=== PATIENT | male | born 1990 | race African-American/Black ===

== ENCOUNTER 2016-12-17 00:57 | Emergency (ER) | payer SELFPAY ==
[2016-12-17 02:45] LABS: BASOPHIL 0.6 % (0-2); EOSINOPHIL 0.5 % (0-5); HGB 15.7 g/dl (13.2-18.0); LYMPHOCYTE 17.5 % (15-48); MCH 30.1 pg (25.0-31.0); MCHC 34.9 g/dL (32.0-36.0); MCV 86.2 fL (78.0-100.0); MONOCYTE 4.4 % (0-12); MPV 10.6 fL (6.0-9.5); PLT 192 K/uL (150-400); RBC 5.22 M/uL (4.70-6.00); RDW 13.1 % (11.5-14.0); WBC 8.1 K/uL (4.0-10.5)
[2016-12-17 03:03] LABS: ALBUMIN 4.8 g/dL (3.5-5.0); BILIRUBIN - TOTAL 0.4 mg/dL (0.1-1.0); GLOBULIN (CALCULATION) 2.5 g/dL (2.2-4.2); POTASSIUM 4.2 mmol/L (3.5-5.1); TOTAL PROTEIN 7.3 g/dL (6.4-8.3)
== END 2016-12-17 04:15 | disposition home or self-care (01) ==
LOC: FER 00:57
PROVIDERS: Emergency Medicine Emergency Medical Services
DX: K29.20 Alcoholic gastritis without bleeding (principal); E86.9 Volume depletion, unspecified; F17.200 Nicotine dependence, unspecified, uncomplicated
CPT/HCPCS: 36415; 80053; 83690; 85025; C9113; J2405

== ENCOUNTER 2020-12-17 08:32 | Day surgery (SDCO) | payer OTHER ==
[~2020-12-17 08:32] MED LIST: BACLOFEN 10MG T10 MG PO; LEVAQUIN500 MG PO; METRONIDAZOLE500 MG PO; NAPROXEN500 MG PO; ONDANSETRON ODT4 MG PO/SL; PROMETHEGA12.5 MG/SU PR; ZOFRAN8 MG PO
[2020-12-17 10:06] LABS: BASOPHIL 0.3 % (0-2); EOSINOPHIL 0.2 % (0-5); HCT 49.9 % (42.0-52.0); HGB 16.7 g/dl (13.2-18.0); LYMPHOCYTE 12.4 % (15-48); MCHC 33.5 g/dL (32.0-36.0); MCV 89.6 fL (78.0-100.0); MONOCYTE 3.7 % (0-12); MPV 10.3 fL (6.0-9.5); NEUTROPHIL 82.5 % (41-80); NRBC 0; PLT 242 K/uL (150-400); RBC 5.57 M/uL (4.70-6.00); RDW 12.6 % (11.5-14.0); WBC 26.6 K/uL (4.0-10.5)
[2020-12-17 10:08] LABS: BILIRUBIN NEGATIVE (NEGATIVE); BLOOD 2+ Ery/uL (NEGATIVE); CLARITY CLEAR (CLEAR); COLOR ORANGE (YELLOW); GLUCOSE (U) NORMAL (NORMAL); LEUKOCYTES NEGATIVE Leu/uL (NEGATIVE); NITRITE NEGATIVE (NEGATIVE); PROTEIN 2+ mg/dL (NEGATIVE); SPECIFIC GRAVITY >=1.030 (1.001-1.030); pH 5.5 (5.0-9.0)
[2020-12-17 10:23] LABS: ALBUMIN 4.8 g/dL (3.4-5.0); BILIRUBIN - TOTAL 0.5 mg/dL (0.2-1.0); CREATININE 0.93 mg/dL (0.67-1.17); GLOBULIN (CALCULATION) 3.5 g/dL; POTASSIUM 3.9 mmol/L (3.5-5.1); TOTAL PROTEIN 8.3 g/dL (6.4-8.2)
[2020-12-17 10:31] LABS: AMPHETAMINES NEGATIVE (NEGATIVE); BARBITURATES NEGATIVE (NEGATIVE); ECSTASY (MDMA) NEGATIVE (NEGATIVE); MARIJUANA (THC) NEGATIVE (NEGATIVE); METHADONE NEGATIVE (NEGATIVE); OPIATES NEGATIVE (NEGATIVE); OXYCODONE NEGATIVE (NEGATIVE)
[2020-12-17 10:33] LABS: BACTERIA TRACE; MUCOUS MODERATE
[2020-12-17 11:45] LABS: LACTIC ACID 5.7 mmol/L (0.4-1.9)
[2020-12-17 16:09] LABS: HCT 45.8 % (42.0-52.0); HGB 15.4 g/dl (13.2-18.0); MCH 29.9 pg (25.0-31.0); MCHC 33.6 g/dL (32.0-36.0); MCV 88.9 fL (78.0-100.0); MPV 10.4 fL (6.0-9.5); RBC 5.15 M/uL (4.70-6.00); RDW 12.6 % (11.5-14.0); WBC 16.7 K/uL (4.0-10.5)
[2020-12-17 16:41] LABS: BUN/CREAT RATIO (CALC) 14.4 RATIO; CREATININE 0.97 mg/dL (0.67-1.17); POTASSIUM 4.2 mmol/L (3.5-5.1)
[2020-12-18 06:01] LABS: BASOPHIL 0.6 % (0-2); EOSINOPHIL 1.5 % (0-5); HCT 41.1 % (42.0-52.0); LYMPHOCYTE 28.3 % (15-48); MCH 30.3 pg (25.0-31.0); MCHC 34.1 g/dL (32.0-36.0); MONOCYTE 6.1 % (0-12); MPV 10.3 fL (6.0-9.5); NEUTROPHIL 63.1 % (41-80); NRBC 0; PLT 161 K/uL (150-400); RBC 4.62 M/uL (4.70-6.00); RDW 12.7 % (11.5-14.0); WBC 10.2 K/uL (4.0-10.5)
[2020-12-18 06:19] LABS: CREATININE 0.86 mg/dL (0.67-1.17); POTASSIUM 3.7 mmol/L (3.5-5.1)
--- NOTE | 2020-12-18 21:21 | NUR ---
pt moved to [facility] room 203, Maxine ADDISON recieved report on patient.
[2020-12-19 05:36] LABS: BASOPHIL 0.9 % (0-2); EOSINOPHIL 2.4 % (0-5); HCT 43.1 % (42.0-52.0); HGB 14.3 g/dl (13.2-18.0); LYMPHOCYTE 40.2 % (15-48); MCH 29.9 pg (25.0-31.0); MCHC 33.2 g/dL (32.0-36.0); MONOCYTE 6.2 % (0-12); MPV 10.4 fL (6.0-9.5); NEUTROPHIL 49.9 % (41-80); NRBC 0; PLT 151 K/uL (150-400); RBC 4.79 M/uL (4.70-6.00); RDW 12.5 % (11.5-14.0); WBC 7.9 K/uL (4.0-10.5)
[2020-12-19 05:50] LABS: BUN/CREAT RATIO (CALC) 8.5 RATIO; CREATININE 0.94 mg/dL (0.67-1.17); POTASSIUM 3.9 mmol/L (3.5-5.1)
--- NOTE | 2020-12-19 14:46 | NUR ---
MET WITH PT. HE ADVISED THAT HE RESIDES WITH HIS MOTHER. HE IS CURRENTLY UNEMPLOYED. PT. STATED THAT HE BECAME UPSET REGARDING HIS GRANDMOTHER'S AND JUST STARTED DRINKING. HE STATED THAT HE IS NOT A "DRINKER". HE STATED THAT HE DOES SMOKE. HE FREQUENTLY USES MARIJUANA. PT. STATED THAT HIS EGD DID NOT SHOWE ANY PROBLEMS WITH HIS STOMACH AND HE WAS READY TO GO HOME. PT. WAS NOT INTRRESTED IN ANY INFORMATION REGARDING ALCHOL ISSUES.
[2020-12-19] MEDS ORDERED: PROTONIX 40MG T40 MG PO (14:47)
[2020-12-19] MEDS ORDERED: CARAFATE1 GM PO (14:47)
== END 2020-12-19 15:05 | disposition home or self-care (01) ==
LOC: FER 08:32 → FTCU 14:13 → FMS 14:13 → FTCU 14:13 → FMS 12-18 20:59
PROVIDERS: Emergency Medicine; ADMIT Internal Medicine
DX: K29.51 Unspecified chronic gastritis with bleeding (principal); F17.210 Nicotine dependence, cigarettes, uncomplicated; K52.9 Noninfective gastroenteritis and colitis, unspecified; D72.829 Elevated white blood cell count, unspecified; E87.2 Acidosis; F10.120 Alcohol abuse with intoxication, uncomplicated; Y90.2 Blood alcohol level of 40-59 mg/100 ml; Z20.822 Contact with and (suspected) exposure to COVID-19
CPT/HCPCS: 36415; 80048; 80053; 80305; 81001; 82150; 83605; 83690; 83735; 85025; 87339; C9113; G0378; G0480; J2405; J2543; J2704; J7030; Q9967; U0002